=== PATIENT | female | born 1970 | race Caucasian/White ===

== ENCOUNTER 2021-09-27 09:19 | Outpatient (CLI) | payer OTHER, SELFPAY ==
[2021-09-27 11:56] LABS: Albumin* 4.3 g/dL (3.3-5.0); Chloride* 102 mmol/L (96-114)
[2021-09-27 11:57] LABS: Potassium* 4.2 mmol/L (3.6-5.1); Sodium* 137 mmol/L (135-149)
[2021-09-27 11:59] LABS: Alkaline Phosphatase* 65 U/L (40-150); Aspartate Amino Transferase* 23 U/L (12-35); Bilirubin Total* 0.8 mg/dL (0.1-1.5); Blood Urea Nitrogen* 14 mg/dL (7-30); Carbon Dioxide* 30 mmol/L (20-32); Cholesterol* 229 mg/dL (90-199); Creatinine* 0.8 mg/dL (0.5-1.5); Estimated Glomerular Filt Rate 89 ml/min; Total Protein* 6.9 g/dL (6.0-8.3)
[2021-09-27 12:00] LABS: Alanine Aminotransferase* 19 U/L (4-35); Glucose* 99 mg/dL (60-115); HDL Cholesterol* 73 mg/dL (>=50); LDL Cholesterol Calculated 129 mg/dL (<100); Triglycerides* 135 mg/dL (40-149)
[2021-09-27 12:51] LABS: Vitamin B12* 227 pg/mL (243-894)
[2021-09-27 13:40] LABS: Free T4 Free Thyroxine* 0.83 ng/dL (0.70-1.85)
== END 2021-09-27 09:20 | disposition home or self-care (01) ==
PROVIDERS: PCP Family Medicine; Visit Provider Family Medicine
DX: Z00.00 Encounter for general adult medical examination without abnormal findings (principal); R53.83 Other fatigue; F32.A Depression, unspecified; Z13.6 Encounter for screening for cardiovascular disorders; F41.9 Anxiety disorder, unspecified
CPT/HCPCS: 80053; 80061; 82607; 84439; 84443

== ENCOUNTER 2021-11-28 11:41 | Outpatient (CLI) | payer OTHER, SELFPAY ==
[2021-11-28 14:07] LABS: Vitamin B12* 403 pg/mL (243-894)
== END 2021-11-28 11:42 | disposition home or self-care (01) ==
PROVIDERS: PCP Family Medicine; Visit Provider Family Medicine
DX: Z01.419 Encounter for gynecological examination (general) (routine) without abnormal findings (principal); E53.8 Deficiency of other specified B group vitamins; E03.9 Hypothyroidism, unspecified; E78.5 Hyperlipidemia, unspecified; R53.83 Other fatigue; F32.A Depression, unspecified; F41.9 Anxiety disorder, unspecified
CPT/HCPCS: 82607; 84443

== ENCOUNTER 2022-02-23 15:49 | Outpatient (CLI) | payer OTHER, SELFPAY ==
[2022-02-23 10:05] LABS: Vitamin B12* 422 pg/mL (243-894)
== END 2022-02-23 15:50 | disposition home or self-care (01) ==
PROVIDERS: PCP Family Medicine; Visit Provider Family Medicine
DX: E53.8 Deficiency of other specified B group vitamins (principal); E03.9 Hypothyroidism, unspecified
CPT/HCPCS: 82607; 84443

== ENCOUNTER 2022-04-05 10:08 | Outpatient (CLI) | payer OTHER, SELFPAY ==
--- NOTE | 2022-04-05 10:15 | CRLHL7_ITS ---
For Patients: As a result of the Century Cures Act, medical imaging exams and procedure reports are released immediately into your electronic medical record. You may view this report before your referring provider. If you have questions, please contact your health care provider. BILATERAL SCREENING MAMMOGRAM WITH COMPUTER-AIDED DETECTION AND TOMOSYNTHESIS TECHNIQUE: CC and MLO views were obtained. These mammographic images have been obtained using full-field digital technique. These mammographic images were interpreted with the benefit of computer-aided detection. Breast Tomosynthesis was used in this interpretation. COMPARISON FILM: No priors available. FINDINGS: The breasts are heterogeneously dense, which may obscure small masses IMPRESSION: There is no radiographic evidence for malignancy. ASSESSMENT: BI-RADS Category 1: Negative RECOMMENDATION: Routine screening mammogram in 1 year. A lay language report of this examination will be provided to the patient. Jean Paul Castillo M.D. Diagnostic Radiologist [email or web address] JONNATHAN/Dictated by: Jean Paul Castillo MD @ 04/17/2022 11:51:00 AM (Electronically Signed)
== END 2022-04-05 10:09 | disposition home or self-care (01) ==
LOC: MAMMO 10:11
PROVIDERS: PCP Family Medicine; Visit Provider Family Medicine
DX: Z12.31 Encounter for screening mammogram for malignant neoplasm of breast (principal); R92.2 Inconclusive mammogram
CPT/HCPCS: 77063; 77067

== ENCOUNTER 2022-11-28 09:50 | Outpatient (CLI) | payer OTHER, SELFPAY | END 2022-11-28 09:51 | disposition home or self-care (01) | LOC: NFLDREF 11-30 09:01 | PROVIDERS: PCP Family Medicine; Referring Provider Family Medicine; Visit Provider Family Medicine | DX: E03.9 Hypothyroidism, unspecified (principal); E53.8 Deficiency of other specified B group vitamins; R53.83 Other fatigue; E78.5 Hyperlipidemia, unspecified | CPT/HCPCS: 80053; 80061; 82607; 84439; 84443 ==

== ENCOUNTER 2022-12-05 10:52 | Outpatient (CLI) | payer OTHER, SELFPAY | END 2022-12-05 10:53 | disposition home or self-care (01) | LOC: NFLDREF 10:53 | PROVIDERS: PCP Family Medicine; Visit Provider Family Medicine | DX: Z00.00 Encounter for general adult medical examination without abnormal findings (principal); R35.0 Frequency of micturition | CPT/HCPCS: 87086 ==

== ENCOUNTER 2023-03-05 09:25 | Outpatient (CLI) | payer OTHER, SELFPAY | END 2023-03-05 09:26 | disposition home or self-care (01) | LOC: NFLDREF 03-07 07:48 | PROVIDERS: PCP Family Medicine; Referring Provider Family Medicine; Visit Provider Family Medicine | DX: E03.9 Hypothyroidism, unspecified (principal) | CPT/HCPCS: 84439; 84443 ==

== ENCOUNTER 2023-05-10 10:13 | Outpatient (CLI) | payer OTHER, SELFPAY ==
--- NOTE | 2023-05-10 10:15 | US_ITS ---
Patient: NESSA AHMADI Facility:?[facility] [place] Patient ID:?[id number] Site Patient ID:?[id number]. Site :?[id number] Study:?US-Extremity Left LEV-05/10/2023 10:46:24 AM Ordering Physician:KRYSTAL BERGMAN Final Report: INDICATION: OTHER SPECIFIED SOFT TISSUE DISORDERS COMPARISON: None. TECHNIQUE: A compression venous ultrasound exam was performed of the right lower extremity using juarez-scale imaging, color Doppler and spectral Doppler analysis. FINDINGS: Sonographic imaging of the right lower extremity demonstrates normal compressibility and color Doppler venous blood flow within the common femoral vein, deep femoral vein, and the proximal greater saphenous vein. Within the thigh, the femoral vein is patent and compressible. At a lower level, the popliteal and posterior tibial veins also show normal compressibility and color Doppler venous blood flow. Limited imaging of the contralateral groin demonstrates a normal spectral waveform and color Doppler venous blood flow within the left common femoral vein. IMPRESSION: Normal venous ultrasound exam. No evidence of deep vein thrombosis within the right lower extremity. Dictated by Jean Paul Castillo MD @ 05/10/2023 11:10:36 AM Signed by:?Jean Paul Castillo MD @05/10/2023 11:10:36 AM (Electronic Signature)
== END 2023-05-10 10:14 | disposition home or self-care (01) ==
LOC: US 10:17
PROVIDERS: PCP Family Medicine; Visit Provider Family Medicine
DX: M79.89 Other specified soft tissue disorders (principal)
CPT/HCPCS: 93971

== ENCOUNTER 2023-06-11 10:05 | Outpatient (CLI) | payer OTHER, SELFPAY | END 2023-06-11 10:06 | disposition home or self-care (01) | LOC: NFLDREF 06-12 07:19 | PROVIDERS: PCP Family Medicine; Referring Provider Family Medicine; Visit Provider Family Medicine | DX: E03.9 Hypothyroidism, unspecified (principal) | CPT/HCPCS: 84443 ==

== ENCOUNTER 2023-07-18 13:24 | Outpatient (CLI) | payer OTHER, SELFPAY ==
--- OUTSIDE RECORDS SUMMARY | 2023-07-18 13:27 | XMS_ITS | Clinical Summary ---
Author Name Unknown [facility] Address [address] [place] [address] Care Team Providers Care Desilverizer Name Role Phone Yanelis Millan MD Primary Care Provider + [phone] Source Comments You are receiving this document as you are listed as the primary care provider,follow-up provider, or the patient has been referred to you for consultation.This is in compliance with the Medicare and[facility] EHR Incentive Program,which states Providers who transition their patient to another setting of careor provider of care or refers their patient to another provider of care shouldprovide summary care record for each transition of care or referral. [email or web address] Allergies Active Allergy Reactions Criticality Noted Date Comments Bee Venom Rash 03/30/2013 Doxycycline Nausea And Vomiting 02/01/2016 Patient reported. Latex Rash 02/15/2016 Other 03/23/2002 latex Penicillins Rash 03/22/2005 Medications Medication Sig Dispensed Refills Start Date End Date Status busPIRone (BUSPAR) 5 MG tabletIndications:Ramona gilmore ([facility]) Take 1 Tablet by mouth two times a day. 180 Tablet 3 09/01/2020 Active nystatin (MYCOSTATIN) 384522 UNIT/GM powderIndications:Cu taneous candidiasis Apply twice a day to affected area for 1-2 weeks 30 g 1 11/18/2020 Active ibuprofen (MOTRIN) 200 MG tablet Take 200-400 mg by mouth every 4 hours as needed for Pain. Active citalopram (CELEXA) 20 MG tabletIndications:Ramona gilmore ([facility]) TAKE 1 TABLET BY MOUTH DAILY 90 Tablet 2 06/05/2021 Active levothyroxine (SYNTHROID) 50 MCG tablet TAKE 1 TABLET BY MOUTH DAILY 90 Tablet 06/26/2021 Active Active Problems Problem Noted Date Diagnosed Date Lung nodules 03/13/2016 Overview: Lung nodules up to 5 mm, CT due 03/28 Anxiety 06/16/2015 Overview: Wellbutrin- anxiety Eustachian tube dysfunction 06/16/2015 Vertigo 05/17/2015 Obstructive sleep apnea 05/06/2014 Overview: Epic Eczema 08/26/2006 Asthma, mild intermittent 08/26/2006 Resolved Problems Problem Noted Date Diagnosed Date Resolved Date Cervical cancer screening 04/02/2017 Overview: 2006 NILM 2013 NILM 2017 ASCUS ,neg HPV 46 y.o. 2020 NILM, HPV negative 49 y.o. Plan: Co-test 11/2023 Immunizations Name Administration Dates Next Due Flu Vac (3+ yrs) 03/22/2005 Fluzone Qiv Multidose Vial 0 .25 (6-35 Mos) 03/30/2013 Influenza IIV4 (Quadrivalent ) 0.5mL (23590) 12/16/2019,03/02/2019,03/29/2017,2015,01/18/2015,04/09/2014,03/30/2013 Moderna Monovalent 12+ 09/29/2020,09/01/2020 Moderna Monovalent Booster 12+ 07/04/2021 PPSV23 (Pneumovax) 01/06/2016 Td, Preservative Free 04/27/2005 Tdap 05/17/2015,04/27/2005 Family History Medical History Relation Name Comments Bipolar Disorder Father and depress ion Hyperlipidemia Father Hypertension Father Cancer, Breast Mother Cancer, Uterine Mother and Paternal Grandmother Diabetes Mother Glaucoma Mother Hyperlipidemia Mother Hypertension Mother Macular Degeneration Mother Seizure Disorder Daughter 2 Diabetes Maternal Grandmother Heart Attack Maternal Grandmother Cancer, Pancreatic Paternal Grandfather Cancer, Uterine Paternal Grandmother Heart Disease Paternal Grandmother Pacema ker Other Son 2 Lazy eye Cancer, Ovary Negative Family History Relation Name Status Comments Father Alive Mother Alive Daughter 1 Alive Daughter 2 Maternal Grandfather Maternal Grandmother Other Alive Paternal Grandfather Paternal Grandmother Sister 1 Alive Sister 2 Alive Son 1 Alive Son 2 Social History Tobacco Use Types Packs/Day Years Used Date Smoking Tobacco: Never Smokeless Tobacco: Never Alcohol Use Standard Drinks/Week Comments No 0 (1 standard drink = 0.6 oz pur e alcohol) PHQ-2 Answer Date Recorded PHQ-2 Score 4 01/27/2021 Sex and Gender Information Value Date Recorded Sex Assigned at Not on file Gender Identity Not on file Sexual Orientation Not on file Last Filed Vital Signs Vital Sign Reading Time Taken Comments Blood Pressure 129/81 01/27/2021 12:00 PM HEEL ROOM SUPERVISOR Pulse 58 01/27/2021 12:00 PM HEEL ROOM SUPERVISOR Temperature 37.5 ??C (99.5 ??F) 01/19/2021 7:11 PM CS T Respiratory Rate 20 03/02/2019 2:24 PM HEEL ROOM SUPERVISOR Oxygen Saturation 98% 01/19/2021 7:11 PM HEEL ROOM SUPERVISOR Inhaled Oxygen Concentration - - Weight 104.3 kg (230 lb) 01/27/2021 12:00 PM HEEL ROOM SUPERVISOR Height 153.7 cm (5' 0.5) 11/18/2020 2:06 PM CDT Body Mass Index 44.18 11/18/2020 2:06 PM CDT Plan of Treatment Health Maintenance Due Date Last Done Comments Colon Cancer Screening Plan Due 1970 Hep C Screening (Preventive Services) 1970 HepB (1) 1988 Pneumococcal (2 - PCV) 01/05/2017 01/06/2016 Zoster/Shingles (1 of 2) 12/16/2019 Cholesterol 2020 12/16/2019, 03/11, 05/17/2015, Additional history exists Adult Preventive Visit 11/18/2021 , 12/16/2019, 03/29/2017, Additional history exists Mammogram 11/18/2021 11/18/2020, 09/2018, 02/07/2017, Additional history exists COVID-19 Vaccine ( season) 2022 07/04/2021, 09/29/2020, 09/01/2020 Influenza (Season Ended) 2023 020, 03/02/2019, 03/29/2017, Additional history exists Cervical Cancer Screening 11/19/20232020, 03/29/2017, 04/01/2013, Additional history exists DTaP/Tdap/Td (4 - Tdap) 05/16/2025 05/17/19 16, 04/27/2005, 04/27/2005 HIV Screening (Preventive Services) Completed 01/06/2016 HepA Aged Out No longer eligi ble based on patient's age to complete this topic Hib Aged Out No longer eligi ble based on patient's age to complete this topic IPV (Polio) Aged Out No longer eligi ble based on patient's age to complete this topic MCV4 Aged Out No longer eligi ble based on patient's age to complete this topic Procedures Procedure Name Priority Date/Time Associated Diagnosis Comments PAP TEST Routine 11/18/2020 3:40 PM CDT Routine health maintenance Screening for malignant neoplasm of cervix MM MAMMOGRAM SCREENING BILAT W 3D ZBIGNIEW W CAD Routine 11/18/2020 11:22 AM CDT Encounter for screening for malignant neoplasm of breast, unspecified screening modality LIPID PANEL & DIRECT LDL (IF NEEDED) Routine 12/16/2019 5:00 PM CDT Lipid screening HIV 1/2 AG/AB 4TH GEN Routine 01/06/2016 12:17 PM CDT Routine health maintenance Screening for human immunodeficiency virus without presence of risk factors from Last 3 Months or Most Recently Relevant to Health Maintenance Results * PAP Test (11/18/2020 3:40 PM CDT) Case Report Pap ? Case: [id number] ? Authorizing Provider: ??Chidi Cade Chi, MD ? Collected: ? 11/18/2020 1540 ? Ordering Location: ? [facility] ? Received: ?11/18/2020 1608 ? Obstetrics and Gynecology ? First Screen: ?Nathalia Santos, CT ? (ASCP) ? Specimen: ?Pap Test, Routine, Cervix/Endocervix ? 11/28/2020 11:12 AM [facility] Pap Specimen Adequacy Satisfactory for evaluation, endocervical/ni sformation zone component absent. 11/28/2020 11:12 AM [facility] Pap Interpretation Negative for intraepithelial lesion or malignancy (NILM). 11/28/2020 11:12 AM [facility] Pap Other Findings Atrophy. 11/28/2020 11:12 AM [facility] Pap Disclaimer The Pap test is a screening test designed to aid in the detection of cervical cancer and its precursor lesions. It is not a diagnostic procedure and should not be used as the sole means of detecting cervical cancer. Both false-positive and false-negative results may occur. 11/28/2020 11:12 AM [facility] Gross Description The specimen is received in SurePath fixative and properly labeled. 1 Pap-stained SurePath slide is prepared. 11/28/2020 11:12 AM [facility] Embedded Images 11:12 AM [facility] Other Specimen Type ENTIRE ENDOCERVIX / Unknown 11/18/2020 3:40 PM CDT 11/18/2020 4:08 PM CDT Comment:LMP: Patient's last menstrual period was 11/11/2020 (exact date). Chidi Cade MD LAB PATHOLOGY Performing Organization Address City/State/[facility] Co de Phone Number [address] [phone] * MM Mammogram Screening Bilat W 3D Zbigniew W CAD (11/18/2020 11:22 AM CDT) Anatomical Region Laterality Modality Breast Bilateral Mammography Impressions 11/21/2020 9:09 AM CDT : ACR BI-RADS Category 1: Negative RECOMMENDATION: Follow Up Imaging in 12 months - Bilateral The results and recommendations of this examination will be communicated to the patient. Narrative 11/21/2020 9:09 AM CDT MM MAMMOGRAM SCREENING BILAT W 3D ZBIGNIEW W CAD performed on 11/18/20 Compared to: 05/15/2018 MM Mammogram Screening Bilat W 3D Zbigniew W CAD, 02/07/2017 MM Mammogram Screening Bilat W Zbigniew W CAD, and 01/06/2016 MM Mammogram Screening Bilat W CAD ?? FINDINGS: Bilateral screening mammogram was performed with the assistance of Computer-Aided Detection and breast tomosynthesis. The breasts are heterogeneously dense, which may obscure small masses. There is no radiographic evidence of malignancy. ?? Yanelis Millan MD [facility] * (ABNORMAL) Lipid Panel and Direct LDL(If Needed) (12/16/2019 5:00 PM CDT) Cholesterol 216(H) 0 - 199 mg/dL 12/16/2019 10:01 PM CDT [facility] Triglyceride 118 <=149 mg/dL 12/16/2019 10:01 PM CDT [facility] HDL Cholesterol 59 >=40 mg/dL 12/16/2019 10:01 PM CDT [facility] LDL, Calculated 133(H) <130 mg/dL 12/16/2019 10:01 PM CDT [facility] Non HDL Chol, Calculated 157 mg/dL 12/16/2019 10:01 PM CDT [facility] Cholesterol/HDL Ratio 3.7 12/16/2019 10:01 PM CDT [facility] Hours Fasting 12 12/16/2019 10:01 PM CDT [facility] Blood Venipuncture / Unknown 12/16/2019 5:00 PM CDT 12/16/2019 5:00 PM CDT Yanelis Millan MD LAB_1 [facility] [address] [place] [address], [facility] [phone] [facility] [address] [place] [phone], [facility] [phone] * HIV 1/2 Ag/Ab 4th Generation (01/06/2016 12:17 PM CDT) HIV 1/2 AG/AB 4thGEN Negative (Non Reactive) NEGNR [facility] Comment:HIV-1 p24 Ag and HIV -1/HIV-2 Ab not detected. 01/06/2016 12:1 7 PM CDT 01/06/2016 12:[address] [facility] - 01/06/2016 3:21 PM CDT Performed at [facility], [address] ??[id number] Chidi Cade MD LAB_1 [facility] [phone] from Last 3 Months or Most Recently Relevant to Health Maintenance Care Teams Desilverizer Relationship Specialty [place] [address] [place] [id number] PCP - General Family Practice 03/30/13
--- OUTSIDE RECORDS SUMMARY | 2023-07-18 13:27 | XMS_ITS | Referral Summary ---
Author Name Unknown Organization [facility] Address [address] [place] [address] Care Team Providers Care Strand Galvanizer Name Role Phone Elsewhere, Pcp Primary Care Provider Unavailabl e Source Comments Patient records contain information from all sites at [facility]. For routine questions regarding patient records, call [phone] during business hours, M-F 8:00 AM - 5:00 PM Central Time. Record requests for emergency care only can be directed to [phone] at any time.[facility] Encounters Date Type Department Care Team Description 07/11/2023 [facility] [address] [place] [address] Joceline Bal M.D. Rash Leg (Primary Dx) from Last 3 Months Allergies Active Allergy Reactions Criticality Noted Date Comments Doxycycline Nausea And Vomiting 05/01/2007 Patient reported. Patient reported. Latex Rash 09/15/2006 Penicillins Rash 03/22/2005 Venom-Honey Bee Rash 03/30/2013 Medications Medication Sig Dispensed Refills Start Date End Date Status busPIRone (BUSPAR) 10 mg tablet Take 10 mg by mouth 2 (two) times a day. 09/27/2021 Active citalopram (CeleXA) 20 mg tablet Take 20 mg by mouth daily. 09/27/2021 Active vitamin B-12 1,000 mcg tablet Take 1,000 mcg by mouth daily. 09/29/2021 Active ibuprofen (ADVIL,MOTRIN) 200 mg tablet Take 200-400 mg by mouth every 4 (four) hours as needed. Active levothyroxine (SYNTHROID, LEVOTHROID) 88 mcg tablet Take 88 mcg by mouth daily. 09/30/2021 Active prednisoLONE acetate (PRED FORTE) 1 % ophthalmic suspension Administer 1 drop into affected eye(s). 07/15/2020 Active Active Problems No known active problems Social History Tobacco Use Types Packs/Day Years Used Date Smoking Tobacco: Never Assessed Nutrition Answer Date Recorded Nutrition: EVOO Fat Source Unknown 10/09 Nutrition: Servings of Fruits/Vegetables per Day Not on file 10/09/2021 Dental Answer Date Recorded Dental: Regular Dentist Unknown 10/10/19 Sex and Gender Information Value Date Recorded Sex Assigned at Not on file Gender Identity Not on file Sexual Orientation Not on file Last Filed Vital Signs Vital Sign Reading Time Taken Comments Blood Pressure - - Pulse 60 10/26/2021 8:59 AM CDT Temperature 37 ??C (98.6 ??F) 10/26/2021 8:59 AM CDT Respiratory Rate - - Oxygen Saturation 98% 10/26/2021 8:59 AM CDT Inhaled Oxygen Concentration - - Weight - - Height - - Body Mass Index - - Plan of Treatment Not on file Procedures Procedure Name Priority Date/Time Associated Diagnosis Comments BI BREAST SCREENING BILATERAL WITH TOMOSYNTHESIS RAD - Routine (most inpatients and all outpatients) 11/18/2020 11:22 AM CDT from Last 3 Months or Most Recently Relevant to Health Maintenance Care Teams Strand Galvanizer Relationship Specialty Start Date End Date Elsewhere, Pcp PCP - General Internal Medicine 10/09/21
--- OUTSIDE RECORDS SUMMARY | 2023-07-18 13:27 | XMS_ITS | Encounter Summary ---
Author Name Unknown Organization [facility] Address [address] [place] [address] Care Team Providers Care Inspector Exhaust Emissions Name Role Phone Yanelis Millan MD Primary Care Provider [phone] Encounter Details Date Type Department Care Team (Late st Contact Info) Description 05/18/2014 Correspondence None Inactive, Provider DME INSTRUCTION DELIVERY PAP THERAPY AND SUPPLIES Social History Tobacco Use Types Packs/Day Years Used Date Smoking Tobacco: Never Smokeless Tobacco: Never Alcohol Use Standard Drinks/Week Comments No 0 (1 standard drink = 0.6 oz pur e alcohol) Sex and Gender Information Value Date Recorded Sex Assigned at Not on file Gender Identity Not on file Sexual Orientation Not on file documented as of this encounter Plan of Treatment Not on file documented as of this encounter Visit Diagnoses Not on filedocumented in this encounter Care Teams Inspector Exhaust Emissions Relationship Specialty [place] [address] [place] [address] PCP - General Family Practice 03/30/13 documented as of this encounter
--- OUTSIDE RECORDS SUMMARY | 2023-07-18 13:27 | XMS_ITS ---
Author Name Unknown Organization [facility] Address [address] [place] [address] Care Team Providers Care Cable Supervisor Name Role Phone Unavailable Unavailable Unavailable Surgery Details Not on file Complications Check Surgery Details section. Procedure Estimated Blood Loss Check Surgery Details section. Procedure Findings Check Surgery Details section. Procedure Specimens Taken Check Surgery Details section.
--- OUTSIDE RECORDS SUMMARY | 2023-07-18 13:27 | XMS_ITS | Clinical Summary ---
Author Name Unknown Organization [facility] Address [address] [place] [address] Care Team Providers Care Audit Lead Name Role Phone Elsewhere, Pcp Primary Care Provider Unavailabl e Source Comments Patient records contain information from all sites at [facility]. For routine questions regarding patient records, call [phone] during business hours, M-F 8:00 AM - 5:00 PM Central Time. Record requests for emergency care only can be directed to [phone] at any time.[facility] Allergies Active Allergy Reactions Criticality Noted Date [...] Active Active Problems No known active problems Encounters Date Type Department Care Team Description 07/11/2023 [facility] [address] [place] [address] Joceline Bal M.D. Rash Leg (Primary Dx) from Last 3 Months Social History Tobacco Use Types Packs/Day Years [...] Mass Index - - Plan of Treatment Health Maintenance Due Date Last Done Comments CT Colonography 1969 Cervical Cancer Screening 1969 Cologuard 1969 Colonoscopy 1969 Colorectal Cancer Screening 1969 FIT 1969 Fasting Glucose for Diabetes Screening 1970 HIV Screening 1969 Hepatitis C Screening 1970 Lipid (Cholesterol) Screening 1969 Thyroid Stimulating Hormone (TSH) test for thyroid function 1969 Hepatitis B Vaccines (1 of 3 - 19+ 3-dose series) 1988 Mammogram 11/18/2021 11/18/2020, 03/0 09/2018, 02/07/2017, Additional history exists COVID-19 Vaccine ( - 2022-24 season) 2022 07/04/2021, 09/29/2020, 09/01/2020 Depression Screening (Annual PHQ-2) 03/11/2023 DTaP,Tdap,and Td Vaccines (3 - Td or Tdap) 05/16/2025 05/17/2015, 04/27/2005, 04/27/2005 Pneumococcal vaccine (0-64 years) Aged Out 01/06/2016 No longer eligible based on patient's age to complete this topic Zoster Vaccines Completed 02/27/2022, 11/28/2021 Influenza Vaccine Completed 12/05/2022, , 12/16/2019, Additional history exists Procedures Procedure Name Priority Date/Time Associated Diagnosis Comments BI BREAST SCREENING BILATERAL WITH TOMOSYNTHESIS RAD - Routine (most inpatients and all outpatients) 11/18/2020 11:22 AM CDT from Last 3 Months or Most Recently Relevant to Health Maintenance Care Teams Audit Lead Relationship Specialty Start Date End Date Elsewhere, Pcp PCP - General Internal Medicine 10/09/21
--- OUTSIDE RECORDS SUMMARY | 2023-07-18 13:27 | XMS_ITS | Encounter Summary ---
Author Name Unknown Organization [facility] Address [address] [place] [address] Care Team Providers Care Medicare Nurse Name Role Phone Yanelis Millan MD Primary Care Provider [phone] Encounter Details Date Type Department Care Team (Late st Contact Info) Description 11/10/2015 Correspondence External to DID NOT CMPLETE Social History Tobacco Use Types Packs/Day Years [...] on filedocumented in this encounter Care Teams Medicare Nurse Relationship Specialty [place] [address] [place] [address] PCP - General Family Practice 03/30/13 documented as of this encounter
--- OUTSIDE RECORDS SUMMARY | 2023-07-18 13:27 | XMS_ITS | Encounter Summary ---
Author Name Unknown Organization [facility] Address [address] [place] [address] Care Team Providers Care Clinical Technician Name Role Phone Yanelis Millan MD Primary Care Provider [phone] Encounter Details Date Type Department Care Team (Late st Contact Info) Description 05/18/2014 Correspondence None Inactive, Provider INSTRUCTION CHECKLIST Social History Tobacco Use Types Packs/Day Years [...] on filedocumented in this encounter Care Teams Clinical Technician Relationship Specialty [place] [address] [place] [address] PCP - General Family Practice 03/30/13 documented as of this encounter
--- OUTSIDE RECORDS SUMMARY | 2023-07-18 13:27 | XMS_ITS | Encounter Summary ---
Author Name Unknown Organization [facility] Address [address] [place] [address] Care Team Providers Care Brazer Production Line Name Role Phone Yanelis Millna MD Primary Care Provider Encounter Details Date Type Department Care Team (Latest Contact Info) Description 03/08/2016 Consent for Procedure/Treatme nt [facility] [address] [place] [address] METHACHOLINE CHALLENGE TEST Social History Tobacco Use Types Packs/Day Years [...] on filedocumented in this encounter Care Teams Brazer Production Line Relationship Specialty [place] [address] [place] [address] PCP - General Family Practice 03/30/13 documented as of this encounter
--- OUTSIDE RECORDS SUMMARY | 2023-07-18 13:27 | XMS_ITS | Encounter Summary ---
Author Name Unknown Organization [facility] Address [address] [place] [address] Care Team Providers Care Ecommerce Manager Name Role Phone Yanelis Millan MD Primary Care Provider Encounter Details Date Type Department Care Team (Late st Contact Info) Description 06/03/2014 Correspondence None Inactive, Provider PAP EQUIPMENT PICK-UP TICKET Social History Tobacco Use Types Packs/Day Years [...] on filedocumented in this encounter Care Teams Ecommerce Manager Relationship Specialty [place] [address] [place] [address] PCP - General Family Practice 03/30/13 documented as of this encounter
--- OUTSIDE RECORDS SUMMARY | 2023-07-18 13:27 | XMS_ITS | Encounter Summary ---
Author Name Unknown Organization [facility] Address [address] [place] [address] Care Team Providers Care Javascript Front End Developer Name Role Phone Yanelis Millan MD Primary Care Provider [phone] Encounter Details Date Type Department Care Team (Late st Contact Info) Description 11/29/2017 Correspondence [facility] [address] [place] [id number] [place] [address] [place] [id number] CONTINUTIY OF CARE DOCUMENT Social History Tobacco Use Types Packs/Day Years [...] on filedocumented in this encounter Care Teams Javascript Front End Developer Relationship Specialty [place] [address] [place] [id number] PCP - General Family Practice 03/30/13 documented as of this encounter
--- OUTSIDE RECORDS SUMMARY | 2023-07-18 13:27 | XMS_ITS | Encounter Summary ---
Author Name Unknown Organization [facility] Address [address] [place] [address] Care Team Providers Care Manager Adult Name Role Phone Elsewhere, Pcp Primary Care Provider Unavailabl e Reason for Referral * Outpatient (Routine) - Authorized Specialty Diagnoses / Procedures Referred By Marissa workman Referred To Contact Dermatology Diagnoses Rash Leg Joceline Bal M.D. [address] [place] [address] [facility] Referral ID Status Reason Start Date Expiration Date V isits Requested Visits Authorized [id number] Authorized 07/11/2023 01/09/2025 1 1 Encounter Details Date Type Department Care Team (Late st Contact Info) Description 07/11/2023 [facility] [address] [place] [address] Joceline Bal M.D. [address] [place] [address] Brittney Leg (Primary Dx) Social History Tobacco Use Types Packs/Day Years [...] as of this encounter Plan of Treatment Scheduled Referrals Name Type Priority Associated Diagnoses Order Schedule Dermatology Referral Outpatient Referral Routine Rash Leg Expected: 07/11/2023 (Approximate), Expires: 10/10/2024 documented as of this encounter Visit Diagnoses Diagnosis Rash Leg- Primary documented in this encounter Care Teams Manager Adult Relationship Specialty Start Date End Date Elsewhere, Pcp PCP - General Internal Medicine 10/09/21 documented as of this encounter
--- OUTSIDE RECORDS SUMMARY | 2023-07-18 13:27 | XMS_ITS | Encounter Summary ---
Author Name Unknown Organization [facility] Address [address] [place] [address] Care Team Providers Care Plug Drill Operator Name Role Phone Yanelis Millan MD Primary Care Provider Encounter Details Date Type Department Care Team (Late st Contact Info) Description 05/18/2014 Correspondence None Inactive, Provider PAP EQUIPMENT PICK-UP [...] on filedocumented in this encounter Care Teams Plug Drill Operator Relationship Specialty [place] [address] [place] [address] PCP - General Family Practice 03/30/13 documented as of this encounter
--- NOTE | 2023-07-18 13:45 | MR_ITS ---
[address] [address] Phone:?[phone] Fax:?[phone] Referring Physician Information: Jeremy Chester M.D. [address] [facility] [address] Phone:?[phone] Fax:?[phone] Patient:Alistair Johnson D.O.B:?1970 Sex:?Female Phone:?[phone] [facility] MRN:?[id number] Exam Date:?07/18/2023 EXAM: MRI of the LEFT KNEE, without contrast CLINICAL HISTORY: Left knee pain. Evaluate for meniscal tear. COMPARISONS: None available. TECHNICAL: MR sequences of the left knee: sagittals: PD, T2 FS coronals: PD, STIR, T2 axials: PD, T2 FS CONTRAST: None SEDATION: None FINDINGS: Bones: There is extensive edema-like signal throughout the imaged portions of the femoral and tibial diaphyseal bone marrow. 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 Retinacula: The medial and lateral retinacula are intact. Fat pads: The infrapatellar, quadriceps, and prefemoral fat pads are unremarkable. Knee joint: Effusion: Moderate left knee joint effusion. Popliteal cyst: None. Intra-articular bodies: None. Posteromedial corner: The semimembranosus and pes anserine tendons are intact. Medial compartment: Medial meniscus: There is a 1.0 cm in length complex tear of the body of the medial meniscus. Cartilage: No discrete chondral defect is seen although evaluation is suboptimal secondary to suboptimal znvuew-yp-apcen secondary to patient body habitus. Lateral compartment: Lateral meniscus: No lateral meniscal tear is seen although evaluation is suboptimal secondary to suboptimal fwomye-ew-umlzn secondary to patient body habitus. Cartilage: No chondral defect is seen. Ligaments: Anterior cruciate ligament: Intact. Posterior cruciate ligament: Intact. Medial collateral ligament: Intact. Posterior oblique ligament: Intact. Fibular collateral ligament: Intact. Posterolateral corner: The distal biceps femoris tendon, iliotibial band, popliteus tendon, popliteus muscle, popliteofibular ligament, and arcuate ligament are intact. Extensor mechanism: Patellar tendon: Intact. Quadriceps tendon: Intact. IMPRESSION: 1. 1.0 cm in length complex tear of the body of the medial meniscus. 2. 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 3. Extensive edema-like signal throughout the imaged portions of the femoral and tibial diaphyseal bone marrow is most consistent with hematopoietic marrow (which can be seen in patients who smoke, who are obese, or who are anemic) but is not completely specific. 4. Moderate left knee joint effusion. 5. No lateral meniscal tear is seen although evaluation is suboptimal secondary to suboptimal ihjpkw-ck-ssxlc secondary to patient body habitus. 6. No ligamentous or tendinous pathology of the left knee. RCB Electronically signed on 07/18/2023 6:04:00 PM by Daniel Zarate M.D.
== END 2023-07-18 13:25 | disposition home or self-care (01) ==
LOC: MRI 13:25
PROVIDERS: PCP Family Medicine; Visit Provider Orthopaedic Surgery
DX: M25.562 Pain in left knee (principal); S83.232A Complex tear of medial meniscus, current injury, left knee, initial encounter; M22.42 Chondromalacia patellae, left knee; M25.462 Effusion, left knee
CPT/HCPCS: 73721

== ENCOUNTER 2023-08-13 08:48 | Day surgery (SDC) | payer OTHER, SELFPAY ==
[2023-08-13] VITALS (12 sets, daily range): BP systolic 97–153; BP diastolic 66–92; PULSE 57–97; RESP 14–18; TEMP 35.9–36.9; O2SAT 95–98; BMI 44.3
--- NOTE | 2023-08-13 06:33 | W.ANESCHARGE ---
Anesthesia Charges Start Date/Time Anesthesia Start Date: 08/13/23 Anesthesia Start Time: 10:10 Stop Date/Time Anesthesia Stop Date: 08/13/23 Anesthesia Stop Time: 11:12
--- OUTSIDE RECORDS SUMMARY | 2023-08-13 08:50 | XMS_ITS | Encounter Summary ---
Author Organization [facility] Address [address] [place] [address] Care Team Providers Care Real Estate Investment Analyst Name Role Phone Elsewhere, Pcp Primary Care Provider Unavailabl e Encounter Details Date Type Department Care Team (Late st Contact Info) Description 08/07/2023 Clinical Communication Primary Care on Demand at [facility] [address] [place] [address] Ned Dominguez M.D. [address] [place] [address] Social History Tobacco Use Types Packs/Day Years [...] on filedocumented in this encounter Care Teams Real Estate Investment Analyst Relationship Specialty Start Date End Date Elsewhere, Pcp PCP - General Internal Medicine 10/09/21 documented as of this encounter
--- OUTSIDE RECORDS SUMMARY | 2023-08-13 08:50 | XMS_ITS | Encounter Summary ---
Author Organization [facility] Address [address] [place] [address] Care Team Providers Care Rn Support Services Name Role Phone Yanelis Millan MD Primary [...] on filedocumented in this encounter Care Teams Rn Support Services Relationship Specialty [place] [address] [place] [address] PCP - General Family Practice 03/30/13 documented as of this encounter
--- OUTSIDE RECORDS SUMMARY | 2023-08-13 08:50 | XMS_ITS | Referral Summary ---
Author Organization [facility] Address [address] [place] [address] Care Team Providers Care 4Th Grade Math Teacher Name Role Phone Elsewhere, Pcp Primary Care Provider Unavailabl e Source Comments Patient records contain information from all sites at [facility]. For routine questions regarding patient records, call [phone] during business hours, M-F 8:00 AM - 5:00 PM Central Time. Record requests for emergency care only can be directed to [phone] at any time.[facility] Encounters Date Type Department Care Team Description 08/07/2023 Clinical Communication Primary Care on Demand at [facility] [address] [place] [address] Ned Dominguez M.D. 07/11/2023 [facility] [address] [place] [address] Joceline Bal M.D. Rash Leg (Primary Dx) [...] Recently Relevant to Health Maintenance Care Teams 4Th Grade Math Teacher Relationship Specialty Start Date End Date Elsewhere, Pcp PCP - General Internal Medicine 10/09/21
--- OUTSIDE RECORDS SUMMARY | 2023-08-13 08:50 | XMS_ITS | Encounter Summary ---
Author Organization [facility] Address [address] [place] [address] Care Team Providers Care Nipping Machine Operator Name Role Phone Yanelis Millan MD [...] on filedocumented in this encounter Care Teams Nipping Machine Operator Relationship Specialty [place] [address] [place] [address] PCP - General Family Practice 03/30/13 documented as of this encounter
--- OUTSIDE RECORDS SUMMARY | 2023-08-13 08:50 | XMS_ITS | Clinical Summary ---
Author Organization [facility] Address [address] [place] [address] Care Team Providers Care Cutter Finisher Name Role Phone Yanelis Millan MD Primary Care Provider [phone] Source Comments You are receiving this document as you are listed as the primary care provider,follow-up provider, or the patient has been referred to you for consultation.This is in compliance with the Medicare and[facility] Cent[facility] EHR Incentive Program,which states Providers who transition their patient to another setting of careor provider of care or refers their patient to another provider of care shouldprovide summary care record for each transition of care or referral. [facility] Allergies Active Allergy Reactions Criticality Noted Date Comments Bee Venom Rash 03/30/2013 Doxycycline Nausea And Vomiting 02/01/2016 Patient reported. Latex Rash 02/15/2016 Other 03/23/2002 latex Penicillins Rash 03/22/2005 Medications Medication Sig Dispensed Refills Start Date End Date Status busPIRone (BUSPAR) 5 MG tabletIndications:Ramona gilmore ([facility]) Take 1 Tablet by mouth two times a day. 180 Tablet 3 09/01/2020 Active nystatin (MYCOSTATIN) 760582 UNIT/GM powderIndications:Cu taneous candidiasis Apply twice a day to affected area for 1-2 weeks 30 g 1 11/18/2020 Active ibuprofen (MOTRIN) 200 MG tablet Take 200-400 mg by mouth every 4 hours as needed for Pain. Active citalopram (CELEXA) 20 MG tabletIndications:Ramona gilmore ([facility]) TAKE 1 TABLET BY MOUTH DAILY [...] Mos) 03/30/2013 Influenza IIV4 (Quadrivalent ) 0.5mL (67961) 12/16/2019,03/02/2019,03/29/2017,2015,01/18/2015,04/09/2014,03/30/2013 Moderna Monovalent 12+ 09/29/2020,09/01/2020 Moderna Monovalent [...] Comments Blood Pressure 129/81 01/27/2021 12:00 PM REFRIGERATOR ASSEMBLER Pulse 58 01/27/2021 12:00 PM REFRIGERATOR ASSEMBLER Temperature 37.5 ??C (99.5 ??F) 01/19/2021 7:11 PM CS T Respiratory Rate 20 03/02/2019 2:24 PM REFRIGERATOR ASSEMBLER Oxygen Saturation 98% 01/19/2021 7:11 PM REFRIGERATOR ASSEMBLER Inhaled Oxygen Concentration - - Weight 104.3 kg (230 lb) 01/27/2021 12:00 PM REFRIGERATOR ASSEMBLER Height 153.7 cm (5' 0.5) 11/18/2020 2:06 [...] PM CDT) Case Report Pap ? Case: [id number] ? Authorizing Provider: ??Ayika, Kimberlee N P, MD ? Collected: ? 11/18/2020 1540 ? Ordering Location: ? [facility] ? Received: ?11/18/2020 1608 ? Obstetrics and Gynecology ? First Screen: ?Nathalia Santos, CT ? (ASCP) ? Specimen: ?Pap Test, Routine, Cervix/Endocervix ? 11/28/2020 11:12 AM [facility] Pap Specimen Adequacy Satisfactory for evaluation, endocervical/ni sformation zone component absent. 11/28/2020 11:12 AM [facility] Pap Interpretation Negative for intraepithelial lesion or malignancy (NILM). 11/28/2020 11:12 AM [facility] Pap Other Findings Atrophy. 11/28/2020 11:12 AM [facility] Pap Disclaimer The Pap test is a screening test designed to aid in the detection of cervical cancer and its precursor lesions. It is not a diagnostic procedure and should not be used as the sole means of detecting cervical cancer. Both false-positive and false-negative results may occur. 11/28/2020 11:12 AM [facility] Gross Description The specimen is received in SurePath fixative and properly labeled. 1 Pap-stained SurePath slide is prepared. 11/28/2020 11:12 AM [facility] Embedded Images 11:12 AM [facility] Other Specimen Type ENTIRE ENDOCERVIX / Unknown 11/18/2020 3:40 PM CDT 11/18/2020 4:08 PM CDT Comment:LMP: Patient's last menstrual period was 11/11/2020 (exact date). Chidi Cade MD LAB PATHOLOGY Performing Organization Address City/State/[facility] Co de Phone Number [address] [phone] * MM Mammogram Screening Bilat W 3D [...] evidence of malignancy. ?? Yanelis Millan MD [facility] * (ABNORMAL) Lipid Panel and Direct LDL(If Needed) (12/16/2019 5:00 PM CDT) Cholesterol 216(H) 0 - 199 mg/dL 12/16/2019 10:01 PM CDT [facility] Triglyceride 118 <=149 mg/dL 12/16/2019 10:01 PM CDT [facility] HDL Cholesterol 59 >=40 mg/dL 12/16/2019 10:01 PM CDT [facility] LDL, Calculated 133(H) <130 mg/dL 12/16/2019 10:01 PM CDT [facility] Non HDL Chol, Calculated 157 mg/dL 12/16/2019 10:01 PM CDT [facility] Cholesterol/HDL Ratio 3.7 12/16/2019 10:01 PM CDT [facility] Hours Fasting 12 12/16/2019 10:01 PM CDT [email or web address] Blood Venipuncture / Unknown 12/16/2019 5:00 PM CDT 12/16/2019 5:00 PM CDT Yanelis Millan MD LAB_1 [facility] [employer] [address] [address], [facility] [phone] [facility] [address] [place] [address], [facility] [phone] * HIV 1/2 Ag/Ab 4th Generation (01/06/2016 12:17 PM CDT) HIV 1/2 AG/AB 4thGEN Negative (Non Reactive) NEGNR [facility] Comment:HIV-1 p24 Ag and HIV -1/HIV-2 Ab not detected. 01/06/2016 12:1 7 PM CDT 01/06/2016 12:19 PM CDT Narrative [facility] - 01/06/2016 3:21 PM CDT [facility], [address] [place] [address] ??[id number] Chidi Cade MD LAB_1 [facility] [phone] from Last 3 Months or Most Recently Relevant to Health Maintenance Care Teams Cutter Finisher Relationship Specialty [place] [address] [place] [address] PCP - General Family Practice 03/30/13
--- OUTSIDE RECORDS SUMMARY | 2023-08-13 08:50 | XMS_ITS | Encounter Summary ---
Author Organization [facility] Address [address] [place] [address] Care Team Providers Care Grain Weigher Name Role Phone Yanelis Millan MD Primary Care Provider Encounter Details Date Type Department Care Team (Late st Contact Info) Description 11/29/2017 Correspondence [facility] [address] [id number] [place] [address] [place] [address] CONTINUTIY OF CARE DOCUMENT Social History Tobacco [...] on filedocumented in this encounter Care Teams Grain Weigher Relationship Specialty Start [place] [address] [place] [place] [id number] PCP - General Family Practice 03/30/13 documented as of this encounter
--- OUTSIDE RECORDS SUMMARY | 2023-08-13 08:50 | XMS_ITS | Clinical Summary ---
Author Organization [facility] Address [address] [place] [address] Care Team Providers Care Advisory Intern Name Role Phone Elsewhere, Pcp Primary Care Provider Unavailabl e Source Comments Patient records contain information from all sites at [facility]. For routine questions regarding patient records, call [phone] during business hours, M-F 8:00 AM - 5:00 PM Central Time. Record requests for emergency care only can be directed to [phone] at any time.[facility] Allergies Active Allergy Reactions Criticality Noted Date [...] Clinical Communication Primary Care on Demand at [facility] [address] [facility] [address] Ned Dominguez M.D. 07/11/2023 [facility] [address] [place] [id number] Joceline Bal M.D. Rash Leg (Primary Dx) [...] Date Last Done Comments CT Colonography 1970 Cologuard 1970 Colonoscopy 1970 Colorectal Cancer Screening 1970 FIT 1970 Fasting Glucose for Diabetes Screening 1970 HIV Screening 1970 Hepatitis C Screening 1970 Lipid (Cholesterol) Screening 1970 Thyroid Stimulating Hormone (TSH) test for thyroid function 1970 Hepatitis B Vaccines (1 of 3 - 19+ 3-dose series) 1988 Mammogram 11/18/2021 11/18/2020, 11/09, 05/15/2018, Additional history exists COVID-19 Vaccine ( season) 2022 07/04/2021, 09/29/2020, 09/01/2020 Depression Screening (Annual PHQ-2) 03/11/2023 Cervical Cancer Screening 11/19/2023 11/18/2020 DTaP,Tdap,and Td Vaccines (3 - Td or [...] Recently Relevant to Health Maintenance Care Teams Advisory Intern Relationship Specialty Start Date End Date Elsewhere, Pcp PCP - General Internal Medicine 10/09/21
--- OUTSIDE RECORDS SUMMARY | 2023-08-13 08:50 | XMS_ITS | Encounter Summary ---
Author Organization [facility] Address [address] [place] [address] Care Team Providers Care Explosives Worker Name Role Phone Elsewhere, Pcp Primary Care Provider Unavailabl e Reason for Referral * Outpatient (Routine) - Authorized Specialty Diagnoses / Procedures Referred By Marissa workman Referred To Contact Dermatology Diagnoses Rash Leg Joceline Bal M.D. [address] [place] [address] [facility] Referral ID Status Reason Start Date Expiration Date V isits Requested Visits Authorized [id number] Authorized 07/11/2023 01/09/2025 1 1 Encounter Details Date Type Department Care Team (Late st Contact Info) Description 07/11/2023 [facility] [address] [place] [address] Joceline Bal M.D. [address] [place] [address] Rash Leg (Primary Dx) Social History Tobacco Use [...] Primary documented in this encounter Care Teams Explosives Worker Relationship Specialty Start Date End Date Elsewhere, Pcp PCP - General Internal Medicine 10/09/21 documented as of this encounter
--- OUTSIDE RECORDS SUMMARY | 2023-08-13 08:50 | XMS_ITS | Encounter Summary ---
Author Organization [facility] Address [address] [place] [address] Care Team Providers Care Dish Network Installer Name Role Phone Yanelis Millan MD Primary Care Provider [phone] Encounter Details Date Type Department Care Team (Latest Contact Info) Description 03/08/2016 Consent for Procedure/Treatme nt [facility] [address] [place] [address] METHACHOLINE CHALLENGE TEST Social History Tobacco Use [...] on filedocumented in this encounter Care Teams Dish Network Installer Relationship Specialty [place] [address] [place] [address] PCP - General Family Practice 03/30/13 documented as of this encounter
--- OUTSIDE RECORDS SUMMARY | 2023-08-13 08:50 | XMS_ITS | Encounter Summary ---
Author Organization [facility] Address [address] [place] [address] Care Team Providers Care Exceptional Student Education Teacher Name Role Phone Yanelis Millan MD Primary [...] on filedocumented in this encounter Care Teams Exceptional Student Education Teacher Relationship Specialty [place] [address] [place] [address] PCP - General Family Practice 03/30/13 documented as of this encounter
--- OUTSIDE RECORDS SUMMARY | 2023-08-13 08:50 | XMS_ITS ---
Author Organization [facility] Address [address] [place] [address] Care Team Providers Care Carbon Setter Name Role Phone Unavailable Unavailable Unavailable Surgery Details Not on file Complications Check Surgery Details section. Procedure Estimated Blood Loss Check Surgery Details section. Procedure Findings Check Surgery Details section. Procedure Specimens Taken Check Surgery Details section.
--- OUTSIDE RECORDS SUMMARY | 2023-08-13 08:50 | XMS_ITS | Encounter Summary ---
Author Organization [facility] Address [address] [place] [address] Care Team Providers Care Career Advisor Name Role Phone Yanelis Millan MD Primary [...] on filedocumented in this encounter Care Teams Career Advisor Relationship Specialty [place] [address] [place] [address] PCP - General Family Practice 03/30/13 documented as of this encounter
--- OUTSIDE RECORDS SUMMARY | 2023-08-13 08:50 | XMS_ITS | Encounter Summary ---
Author Organization [facility] Address [address] [place] [address] Care Team Providers Care Rfid Engineer Name Role Phone Yanelis Millan MD Primary [...] on filedocumented in this encounter Care Teams Rfid Engineer Relationship Specialty [place] [address] [place] [address] PCP - General Family Practice 03/30/13 documented as of this encounter
[2023-08-13] MEDS: LACTATED RINGERS 1000 ML 1,000 ML 100 ML IV (08:55)
[2023-08-13] MEDS: CEFAZOLIN 2 GM INJ IVP (10:24)
--- NOTE | 2023-08-13 10:40 | W.ANESCHARGE ---
Anesthesia Charges Start Date/Time Anesthesia Start Date: 08/13/23 Anesthesia Start Time: 10:10 Stop Date/Time Anesthesia Stop Date: 08/13/23 Anesthesia Stop Time: 11:12
--- NOTE | 2023-08-13 10:59 | P.ORPRC_ITS ---
Procedure Note Date of procedure: 08/13/23 Procedure: PREOPERATIVE DIAGNOSIS: Left knee medial meniscus tear POSTOPERATIVE DIAGNOSIS: Left knee medial meniscus tear NAME OF OPERATION: Left knee arthroscopic partial medial meniscectomy SURGEON: Jeremy Chester MD PHOTO EQUIPMENT TECHNICIAN: JUAN Yancey ANESTHESIA: Spinal ESTIMATED BLOOD LOSS: 0 mL COMPLICATIONS: None SPECIMENS: None DRAINS: None PREOPERATIVE ANTIBIOTICS: Ancef 2 gram INDICATIONS: The patient is a 52-year-old with a history of left knee medial pain. MRI scan is consistent with a medial meniscus tear. Despite appropriate nonoperative management, including activity modification, antiinflammatories, bwlm-yfx-ecxfdkj pain medication, bracing, physical therapy, and injections they continue to have pain and disability. Operative intervention was offered. The risks, benefits and expected outcomes were discussed in detail. These included but were not limited to: Infection, bleeding, injury to blood vessel or nerve, venous thromboembolism. All questions were answered to their satisfaction. PROCEDURE: Spinal anesthesia was administered. The patient was placed supine on the operating room table. The left lower extremity was prepped and draped in the usual sterile fashion. The limb was exsanguinated with the Junito bandage. The pneumatic tourniquet was inflated to 300 mmHg. A standard anterolateral portal was established. The arthroscope was introduced. The working portal was established anteromedially. Diagnostic arthroscopy was performed with findings as follows: The suprapatellar pouch is normal. Articular surface on the patella is normal. Articular surface on the trochlea is normal. The medial gutter is normal. The medial compartment shows a focal area of grade 3 change on the central, weight- bearing portion of medial femoral condyle, normal articular cartilage on the medial tibial plateau. The medial meniscus has a degenerative tear at the junction of the midbody and posterior horn. There is a small radial tear from the leading edge, the does not go to the capsule. There was some undersurface horizontal cleavage tearing. The root is intact. The notch shows the ACL to be intact. The lateral compartment shows normal articular cartilage on the lateral femoral condyle and lateral tibial plateau. The lateral meniscus is normal. The lateral gutter is normal. The posterior horn of the medial meniscus was debrided to a stable base using a combination of sadia through both portals. Unstable chondral flaps on the medial femoral condyle were debrided with the shaver through both portals, taken to a stable base. Arthroscopic instruments were removed, the portal sites were Steri-Stripped closed, the knee was infiltrated with 30 mL of 0.25% Marcaine without epinephrine. A dry dressing was applied, the tourniquet was released. Sponge and needle counts were correct x 2. The patient tolerated the procedure well. There were no apparent complications. They were carefully transferred to the hospital bed and taken to the postanesthesia care unit in satisfactory condition. PLAN: The patient will be discharged to home. They may weightbear as tolerates. Range of motion will be unrestricted. They will follow up in the office next week for a wound check.
[2023-08-13] MEDS: BUPIVACAINE 0.25% 30 ML INJECTION (11:02)
--- NOTE | 2023-08-13 11:16 | SUR.OPER ---
PATIENT QUESTIONS ANSWERED SATISFACTORILY PREOPERATIVELY.? PATIENT BROUGHT TO OR #1 PER CART AFTER ADMINISTRATION OF A BLOCK.? Patient positioned supine on OR #1 bed.? The perioperative?team supported arms bilaterally on arm boards.? CONTINUOUS IRRIGATION OF THE LEFT KNEE WITH 3000cc BAGS NACL. Final approval of positioning by surgeon.?
[2023-08-13] MEDS: OxyCODONE/APAP 5-325 TABLET 1 TAB PO (12:45)
== END 2023-08-13 13:06 | disposition home or self-care (01) ==
LOC: OR 08:48
PROVIDERS: PCP Family Medicine; Visit Provider Orthopaedic Surgery
PROC: (CPT 29882; principal; 2023-08-13 10:15)
DX: M23.222 Derangement of posterior horn of medial meniscus due to old tear or injury, left knee (principal)
CPT/HCPCS: 29881; 01400; A9270; J0665; J0690; J1100; J2405; J2704; J7120

== ENCOUNTER 2023-10-07 15:45 | Outpatient (RCR) | payer OTHER, SELFPAY | END 2024-02-04 23:59 | disposition home or self-care (01) | PROVIDERS: PCP Family Medicine; Visit Provider Orthopaedic Surgery | DX: Z98.890 Other specified postprocedural states (principal); Z87.828 Personal history of other (healed) physical injury and trauma; Z51.89 Encounter for other specified aftercare; M25.562 Pain in left knee; M62.81 Muscle weakness (generalized) | CPT/HCPCS: 97110; 97161 ==

== ENCOUNTER 2023-12-02 09:30 | Outpatient (CLI) | payer OTHER, SELFPAY ==
--- OUTSIDE RECORDS SUMMARY | 2023-12-06 02:40 | XMS_ITS | Encounter Summary ---
Author Organization [employer] [facility] Address [address] [place] [address] Care Team Providers Care Line Dancer Name Role Phone Yanelis Millan MD Primary Care Provider [phone] Encounter Details Date Type Department Care Team [...] on filedocumented in this encounter Care Teams Line Dancer Relationship Specialty [place] [address] [place] [address] PCP - General Family Practice 03/30/13 documented as of this encounter
--- OUTSIDE RECORDS SUMMARY | 2023-12-06 02:40 | XMS_ITS | Encounter Summary ---
Author Organization [employer] Address [address] [place] [address] Care Team Providers Care Resistor Inspector Name Role Phone Yanelis Millan MD Primary [...] on filedocumented in this encounter Care Teams Resistor Inspector Relationship Specialty [place] [address] [place] [address] PCP - General Family Practice 03/30/13 documented as of this encounter
--- OUTSIDE RECORDS SUMMARY | 2023-12-06 02:40 | XMS_ITS | Encounter Summary ---
Author Organization [email or web address] Address [address] [place] [address] Care Team Providers Care Set Up And Charger Name Role Phone Yanelis Millan MD Primary Care Provider [phone] Encounter Details Date Type Department Care Team [...] on filedocumented in this encounter Care Teams Set Up And Charger Relationship Specialty [place] [address] [place] [address] PCP - General Family Practice 03/30/13 documented as of this encounter
--- OUTSIDE RECORDS SUMMARY | 2023-12-06 02:40 | XMS_ITS | Encounter Summary ---
Author Organization [employer] Address [address] [place] [address] Care Team Providers Care Sustainable Agriculture Faculty Name Role Phone Yanelis Millan MD Primary Care Provider Encounter Details Date Type Department Care Team (Late st Contact Info) Description 11/29/2017 Correspondence [facility] [address] [phone] [place] [address] [place] [address]493 CONTINUTIY OF CARE DOCUMENT Social History Tobacco [...] on filedocumented in this encounter Care Teams Sustainable Agriculture Faculty Relationship Specialty Start [place] [address] [address] [place] [id number] PCP - General Family Practice 03/30/13 documented as of this encounter
--- OUTSIDE RECORDS SUMMARY | 2023-12-06 02:40 | XMS_ITS | Encounter Summary ---
Author Organization [employer] Address [address] [place] [address] Care Team Providers Care Wood Strip Block Floor Installer Name Role Phone Yanelis Millan MD Primary Care Provider [phone] Encounter Details Date Type Department Care Team (Latest Contact Info) Description 03/08/2016 Consent for Procedure/Treatme nt [facility] [address] [place] [address] METHACHOLINE CHALLENGE TEST Social History Tobacco Use [...] on filedocumented in this encounter Care Teams Wood Strip Block Floor Installer Relationship Specialty Start [place] [address] [place] [address] PCP - General Family Practice 03/30/13 documented as of this encounter
--- OUTSIDE RECORDS SUMMARY | 2023-12-06 02:40 | XMS_ITS | Clinical Summary ---
Author Organization [employer] Address [address] [place] [address] Care Team Providers Care Fruit Picker Name Role Phone Yanelis Millan MD Primary Care Provider + [phone] Source Comments You are receiving this document as you are listed as the primary care provider,follow-up provider, or the patient has been referred to you for consultation.This is in compliance with the Medicare and[facility] Hospital[facility] EHR Incentive Program,which states Providers who transition their patient to another setting of careor provider of care or refers their patient to another provider of care shouldprovide summary care record for each transition of care or referral. [employer] Allergies Active Allergy Reactions Criticality Noted Date Comments Bee Venom Rash 03/30/2013 Doxycycline Nausea And Vomiting 02/01/2016 Patient reported. Latex Rash 02/15/2016 Other 03/23/2002 latex Penicillins Rash 03/22/2005 Medications Medication Sig Dispensed Refills Start Date End Date Status busPIRone (BUSPAR) 5 MG tabletIndications:Ramona gilmore ([facility]) Take 1 Tablet by mouth two times a day. 180 Tablet 3 09/01/2020 Active nystatin (MYCOSTATIN) 357811 UNIT/GM powderIndications:Cu taneous candidiasis Apply twice a day to affected area for 1-2 weeks 30 g 1 11/18/2020 Active ibuprofen (MOTRIN) 200 MG tablet Take 200-400 mg by mouth every 4 hours as needed for Pain. Active citalopram (CELEXA) 20 MG tabletIndications:Ramona gilmore ([facility]) TAKE 1 TABLET BY MOUTH DAILY 90 Tablet 2 06/05/2021 Active levothyroxine (SYNTHROID) 50 MCG tablet TAKE 1 TABLET BY MOUTH DAILY 90 Tablet 06/26/2021 Active Active Problems Problem Noted Date Diagnosed Date Lung nodules 03/13/2016 Overview (10/31/2016): Lung nodules up to 5 mm, CT due 03/28 Anxiety 06/16/2015 Overview (07/16/2015): Wellbutrin- anxiety Eustachian tube dysfunction 06/16/2015 Vertigo 05/17/2015 Obstructive sleep apnea 05/06/2014 Overview (12/09/2014): Epic Eczema 08/26/2006 Asthma, mild intermittent 08/26/2006 Resolved Problems Problem Noted Date Diagnosed Date Resolved Date Cervical cancer screening 04/02/2017 Overview (11/29/2020): 2006 NILM 2013 NILM 2017 ASCUS ,neg HPV 46 y.o. 2020 NILM, HPV negative 49 y.o. Plan: Co-test 11/2023 Immunizations Name Administration Dates Next Due Flu Vac (3+ yrs) 03/22/2005 Fluzone Qiv Multidose Vial 0 .25 (6-35 Mos) 03/30/2013 Influenza IIV4 (Quadrivalent ) 0.5mL (61459) 12/16/2019,03/02/2019,03/29/2017,2015,01/18/2015,04/09/2014,03/30/2013 Moderna Monovalent 12+ 09/29/2020,09/01/2020 Moderna Monovalent [...] Comments Blood Pressure 129/81 01/27/2021 12:00 PM TRIPOLER Pulse 58 01/27/2021 12:00 PM TRIPOLER Temperature 37.5 ??C (99.5 ??F) 01/19/2021 7:11 PM CS T Respiratory Rate 20 03/02/2019 2:24 PM TRIPOLER Oxygen Saturation 98% 01/19/2021 7:11 PM TRIPOLER Inhaled Oxygen Concentration - - Weight 104.3 kg (230 lb) 01/27/2021 12:00 PM TRIPOLER Height 153.7 cm (5' 0.5) 11/18/2020 2:06 [...] 03/29/2017, Additional history exists Mammogram 11/18/2021 11/18/2020, 03/0 09/2018, 02/07/2017, Additional history exists COVID-19 Vaccine ( season) 2023 07/04/2021, 09/29/2020, 09/01/2020 Influenza (#1) 2023 12/16/2019, 02/09, 03/29/2017, Additional history exists Cervical Cancer Screening [...] PM CDT) Case Report Pap ? Case: [id number] ? Authorizing Provider: ??Alyssia, Chidi Murillo N P, MD ? Collected: ? 11/18/2020 1540 ? Ordering Location: ? [facility] [place] ? Received: ?11/18/2020 1608 ? Obstetrics and Gynecology ? First Screen: ?Nathalia Santos, CT ? (ASCP) ? Specimen: ?Pap Test, Routine, Cervix/Endocervix ? 11/28/2020 11:12 [facility] Pap Specimen Adequacy Satisfactory for evaluation, endocervical/ni sformation zone component absent. 11/28/2020 11:12 AM [facility] Pap Interpretation Negative for intraepithelial lesion or malignancy (NILM). 11/28/2020 11:12 [facility] Pap Other Findings Atrophy. 11/28/2020 11:12 AM [facility] Pap Disclaimer The Pap test is a screening test designed to aid in the detection of cervical cancer and its precursor lesions. It is not a diagnostic procedure and should not be used as the sole means of detecting cervical cancer. Both false-positive and false-negative results may occur. 11/28/2020 11:12 AM [facility] Gross Description The specimen is received in SurePath fixative and properly labeled. 1 Pap-stained SurePath slide is prepared. 11/28/2020 11:12 AM [facility] Embedded Images 11:12 AM [facility] Other Specimen Type ENTIRE ENDOCERVIX / Unknown 11/18/2020 3:40 PM CDT 11/18/2020 4:08 PM CDT Comment:LMP: Patient's last menstrual period was 11/11/2020 (exact date). Chidi Cade [place] [address], [facility] [phone] * MM Mammogram Screening Bilat W 3D [...] evidence of malignancy. ?? Yanelis Millan MD RAD [facility] * (ABNORMAL) Lipid Panel and Direct LDL(If Needed) (12/16/2019 5:00 PM CDT) Cholesterol 216(H) 0 - 199 mg/dL 12/16/2019 10:01 PM CDT [facility] Triglyceride 118 <=149 mg/dL 12/16/2019 10:01 PM CDT [facility] HDL Cholesterol 59 >=40 mg/dL 12/16/2019 10:01 PM CDT [facility] LDL, Calculated 133(H) <130 mg/dL 12/16/2019 10:01 PM CDT [facility] Non HDL Chol, Calculated 157 mg/dL 12/16/2019 10:01 PM CDT [facility] Cholesterol/HDL Ratio 3.7 12/16/2019 10:01 PM CDT [facility] Hours Fasting 12 12/16/2019 10:[address] [facility] [facility] Blood Venipuncture / Unknown 12/16/2019 5:00 PM CDT 12/16/2019 5:00 PM CDT Yanelis Millan MD LAB_1 [facility] [address] [address] [phone] [facility] [address] [place] [id number], [facility] [phone] * HIV 1/2 Ag/Ab 4th Generation (01/06/2016 12:17 PM CDT) HIV 1/2 AG/AB 4thGEN Negative (Non Reactive) [facility] Comment:HIV-1 p24 Ag and HIV -1/HIV-2 Ab not detected. 01/06/2016 12:1 7 PM CDT 01/06/2016 12:19 PM CDT Narrative [facility] - 01/06/2016 3:21 PM CDT Performed at [facility], [address], [place], [place] ??[address] Chidi Cade MD LAB_1 [facility] [phone] from Last 3 Months or Most Recently Relevant to Health Maintenance Care Teams Fruit Picker Relationship Specialty [place] [address] [place] [address] PCP - General Family Practice 03/30/13
--- OUTSIDE RECORDS SUMMARY | 2023-12-06 02:40 | XMS_ITS | Encounter Summary ---
Author Organization [facility] Address [address] [place] [address] Care Team Providers Care Mails Supervisor Name Role Phone Yanelis Millan MD Primary Care Provider [phone] Encounter Details Date Type Department Care Team [...] on filedocumented in this encounter Care Teams Mails Supervisor Relationship Specialty [place] [address] [place] [address] PCP - General Family Practice 03/30/13 documented as of this encounter
--- OUTSIDE RECORDS SUMMARY | 2023-12-06 02:40 | XMS_ITS | Encounter Summary ---
Author Organization [employer] Address [address] [place] [address] Care Team Providers Care Household Refrigerator Mechanic Name Role Phone Yanelis Millan MD Primary [...] on filedocumented in this encounter Care Teams Household Refrigerator Mechanic Relationship Specialty Start [place] [address] [place] [address] PCP - General Family Practice 03/30/13 documented as of this encounter
== END 2023-12-02 09:31 | disposition home or self-care (01) ==
LOC: NFLDREF 12-06 02:37
PROVIDERS: PCP Family Medicine; Referring Provider Family Medicine; Visit Provider Family Medicine
DX: E78.5 Hyperlipidemia, unspecified (principal); E03.9 Hypothyroidism, unspecified; E53.8 Deficiency of other specified B group vitamins
CPT/HCPCS: 80053; 80061; 82607; 84439; 84443

== ENCOUNTER 2023-12-06 10:41 | Outpatient (CLI) | payer OTHER, SELFPAY ==
--- OUTSIDE RECORDS SUMMARY | 2023-12-06 10:44 | XMS_ITS | Encounter Summary ---
Author Organization [email or web address] Address [address] [place] [address] Care Team Providers Care Premium Service Representative Name Role Phone Yanelis Millan MD Primary Care Provider [phone] Encounter Details Date Type Department Care Team (Late st Contact Info) Description 11/29/2017 Correspondence [facility] [address] 118663 [place] [address] [place] [place] [address] CONTINUTIY OF CARE DOCUMENT Social History Tobacco [...] on filedocumented in this encounter Care Teams Premium Service Representative Relationship Specialty Start [place] [address] [place] [id number] PCP - General Family Practice 03/30/13 documented as of this encounter
--- OUTSIDE RECORDS SUMMARY | 2023-12-06 10:44 | XMS_ITS | Encounter Summary ---
Author Organization [employer] Address [address] [place] [address] Care Team Providers Care Employee Relation Manager Name Role Phone Yanelis Millan MD Primary Care Provider [phone] Encounter Details Date Type Department Care Team [...] on filedocumented in this encounter Care Teams Employee Relation Manager Relationship Specialty [place] [address] [place] [address] PCP - General Family Practice 03/30/13 documented as of this encounter
--- OUTSIDE RECORDS SUMMARY | 2023-12-06 10:44 | XMS_ITS | Clinical Summary ---
Author Organization [employer] Address [address] [place] [address] Care Team Providers Care Round Kiln Drawer Name Role Phone Yanelis Millan MD Primary Care Provider + [phone] Source Comments You are receiving this document as you are listed as the primary care provider,follow-up provider, or the patient has been referred to you for consultation.This is in compliance with the Medicare andTri[facility] Hospitalcaid EHR Incentive Program,which states Providers who transition their patient to another setting of careor provider of care or refers their patient to another provider of care shouldprovide summary care record for each transition of care or referral. [facility] Allergies Active Allergy Reactions Criticality Noted Date Comments Bee Venom Rash 03/30/2013 Doxycycline Nausea And Vomiting 02/01/2016 Patient reported. Latex Rash 02/15/2016 Other 03/23/2002 latex Penicillins Rash 03/22/2005 Medications Medication Sig Dispensed Refills Start Date End Date Status busPIRone (BUSPAR) 5 MG tabletIndications:Ramona gilmore ([facility]) Take 1 Tablet by mouth two times a day. 180 Tablet 3 09/01/2020 Active nystatin (MYCOSTATIN) 675367 UNIT/GM powderIndications:Cu taneous candidiasis Apply twice a day to affected area for 1-2 weeks 30 g 1 11/18/2020 Active ibuprofen (MOTRIN) 200 MG tablet Take 200-400 mg by mouth every 4 hours as needed for Pain. Active citalopram (CELEXA) 20 MG tabletIndications:Ramona gilmore ([facility]) TAKE 1 TABLET BY MOUTH DAILY [...] Mos) 03/30/2013 Influenza IIV4 (Quadrivalent ) 0.5mL (20897) 12/16/2019,03/02/2019,03/29/2017,2015,01/18/2015,04/09/2014,03/30/2013 Moderna Monovalent 12+ 09/29/2020,09/01/2020 Moderna Monovalent [...] Comments Blood Pressure 129/81 01/27/2021 12:00 PM PANTOGRAPH I ENGRAVER Pulse 58 01/27/2021 12:00 PM PANTOGRAPH I ENGRAVER Temperature 37.5 ??C (99.5 ??F) 01/19/2021 7:11 PM CS T Respiratory Rate 20 03/02/2019 2:24 PM PANTOGRAPH I ENGRAVER Oxygen Saturation 98% 01/19/2021 7:11 PM PANTOGRAPH I ENGRAVER Inhaled Oxygen Concentration - - Weight 104.3 kg (230 lb) 01/27/2021 12:00 PM PANTOGRAPH I ENGRAVER Height 153.7 cm (5' 0.5) 11/18/2020 2:06 [...] PM CDT) Case Report Pap ? Case: [id number] ? Authorizing Provider: ??Alyssia, Chidi Murillo N P, MD ? Collected: ? 11/18/2020 1540 ? Ordering Location: ? [facility] [place] ? Received: ?11/18/2020 1608 ? Obstetrics and Gynecology ? First Screen: ?Nathalia Santos, CT ? (ASCP) ? Specimen: ?Pap Test, Routine, Cervix/Endocervix ? 11/28/2020 11:12 [facility] Pap Specimen Adequacy Satisfactory for evaluation, endocervical/ni sformation zone component absent. 11/28/2020 11:12 AM [facility] Pap Interpretation Negative for intraepithelial lesion or malignancy (NILM). 11/28/2020 11:12 [facility] Pap Other Findings Atrophy. 11/28/2020 11:12 AM [facility] Pap Disclaimer The Pap test is a screening test designed to aid in the detection of cervical cancer and its precursor lesions. It is not a diagnostic procedure and should not be used as the sole means of detecting cervical cancer. Both false-positive and false-negative results may occur. 11/28/2020 11:12 AM [facility] Gross Description The specimen is received in SurePath fixative and properly labeled. 1 Pap-stained SurePath slide is prepared. 11/28/2020 11:12 AM [facility] Embedded Images 11:12 AM [facility] Other Specimen Type ENTIRE ENDOCERVIX / Unknown 11/18/2020 3:40 PM CDT 11/18/2020 4:08 PM CDT Comment:LMP: Patient's last menstrual period was 11/11/2020 (exact date). [place]idi [place] [address], [facility] [phone] * MM Mammogram Screening Bilat W 3D [...] - 199 mg/dL 12/16/2019 10:01 PM CDT [facility] Triglyceride 118 <=149 mg/dL 12/16/2019 10:01 PM CDT [facility] HDL Cholesterol 59 >=40 mg/dL 12/16/2019 10:01 PM CDT [facility] LDL, Calculated 133(H) <130 mg/dL 12/16/2019 10:01 PM CDT [facility] Non HDL Chol, Calculated 157 mg/dL 12/16/2019 10:01 PM CDT [facility] Cholesterol/HDL Ratio 3.7 12/16/2019 10:01 PM CDT [facility] Hours Fasting 12 12/16/2019 10:01 PM CDT [facility] Blood Venipuncture / Unknown 12/16/2019 5:00 PM CDT 12/16/2019 5:00 PM CDT Yanelis Millan MD LAB_1 [facility] [address] [address] [phone] [facility] [address] [place] [phone], [facility] [phone] * HIV 1/2 Ag/Ab 4th Generation (01/06/2016 12:17 PM CDT) HIV 1/2 AG/AB 4thGEN Negative (Non Reactive) NEGNR [facility] Comment:HIV-1 p24 Ag and HIV -1/HIV-2 Ab not detected. 01/06/2016 12:1 7 PM CDT 01/06/2016 12:19 PM CDT Narrative [facility] - 01/06/2016 3:21 PM CDT Performed at [facility], [address], [place], [place] ??[address] Chidi Cade MD LAB_1 [facility] [phone] from Last 3 Months or Most Recently Relevant to Health Maintenance Care Teams Round Kiln Drawer Relationship Specialty [place] [address] [place] [address] PCP - General Family Practice 03/30/13
--- OUTSIDE RECORDS SUMMARY | 2023-12-06 10:44 | XMS_ITS | Encounter Summary ---
Author Organization [employer] Address [address] [place] [address] Care Team Providers Care Rooming House Keeper Name Role Phone Yanelis Millan MD Primary [...] on filedocumented in this encounter Care Teams Rooming House Keeper Relationship Specialty [place] [address] [place] [address] PCP - General Family Practice 03/30/13 documented as of this encounter
--- OUTSIDE RECORDS SUMMARY | 2023-12-06 10:44 | XMS_ITS | Encounter Summary ---
Author Organization [facility] Address [address] [place] [address] Care Team Providers Care Mica Machine Operator Name Role Phone Yanelis Millan MD Primary Care Provider [phone] Encounter Details Date Type Department Care Team [...] on filedocumented in this encounter Care Teams Mica Machine Operator Relationship Specialty [place] [address] [place] [address] PCP - General Family Practice 03/30/13 documented as of this encounter
--- OUTSIDE RECORDS SUMMARY | 2023-12-06 10:44 | XMS_ITS | Encounter Summary ---
Author Organization [employer] Address [address] [place] [address] Care Team Providers Care Mac Artist Name Role Phone Yanelis Millan MD Primary [...] on filedocumented in this encounter Care Teams Mac Artist Relationship Specialty [place] [address] [place] [address] PCP - General Family Practice 03/30/13 documented as of this encounter
--- OUTSIDE RECORDS SUMMARY | 2023-12-06 10:44 | XMS_ITS | Encounter Summary ---
Author Organization [employer] Address [address] [place] [address] Care Team Providers Care Gas Worker Name Role Phone Yanelis Millan MD Primary Care Provider [phone] Encounter Details Date Type Department Care Team (Latest Contact Info) Description 03/08/2016 Consent for Procedure/Treatme nt [facility] [address] [facility] [address] [place] [address] METHACHOLINE CHALLENGE TEST Social History Tobacco Use [...] on filedocumented in this encounter Care Teams Gas Worker Relationship Specialty [place] [address] [place] [address] PCP - General Family Practice 03/30/13 documented as of this encounter
--- OUTSIDE RECORDS SUMMARY | 2023-12-06 10:44 | XMS_ITS | Encounter Summary ---
Author Organization [employer] Address [address] [place] [address] Care Team Providers Care Manager Economic Name Role Phone Yanelis Millan MD Primary [...] on filedocumented in this encounter Care Teams Manager Economic Relationship Specialty [place] [address] [place] [address] PCP - General Family Practice 03/30/13 documented as of this encounter
[2023-12-08 05:33] LABS: HPV Source Cervix; HPV, High Risk by TMA Not Detected
[2023-12-18 15:04] LABS: PAP Reflex Billing Y; Pap Test Reviewed by Path Done
== END 2023-12-06 10:42 | disposition home or self-care (01) ==
PROVIDERS: PCP Family Medicine; Visit Provider Family Medicine
DX: Z12.4 Encounter for screening for malignant neoplasm of cervix (principal)
CPT/HCPCS: 87624; 87625; 88141; 88142

== ENCOUNTER 2024-03-09 09:40 | Outpatient (CLI) | payer OTHER, SELFPAY | END 2024-03-09 09:41 | disposition home or self-care (01) | LOC: NFLDREF 03-10 11:48 | PROVIDERS: PCP Family Medicine; Referring Provider Family Medicine; Visit Provider Family Medicine | DX: E03.9 Hypothyroidism, unspecified (principal) | CPT/HCPCS: 84439; 84443 ==

== ENCOUNTER 2024-03-25 13:19 | Outpatient (CLI) | payer MEDICAID, SELFPAY ==
--- NOTE | 2024-03-25 13:20 | CRLHL7_ITS ---
For Patients: As a result of the Century Cures Act, medical imaging exams and procedure reports are released immediately into your electronic medical record. You may view this report before your referring provider. If you have questions, please contact your health care provider. BILATERAL SCREENING MAMMOGRAM WITH COMPUTER-AIDED DETECTION AND TOMOSYNTHESIS TECHNIQUE: CC and MLO views were obtained. These mammographic images have been obtained using full-field digital technique. These mammographic images were interpreted with the benefit of computer-aided detection. Breast Tomosynthesis was used in this interpretation. COMPARISON FILM: 04/05/22. FINDINGS: The breasts are heterogeneously dense, which may obscure small masses IMPRESSION: There is no radiographic evidence for malignancy. ASSESSMENT: BI-RADS Category 2: Benign RECOMMENDATION: Routine screening mammogram in 1 year. A lay language report of this examination will be provided to the patient. Jean Paul Castillo M.D. Diagnostic Radiologist [email or web address] Transcribed: 3:51 p.eric quintero/Dictated by: Jean Paul Castillo MD @ 03/26/2024 10:29:00 AM (Electronically Signed)
== END 2024-03-25 13:20 | disposition home or self-care (01) ==
PROVIDERS: PCP Family Medicine; Visit Provider Family Medicine
DX: Z12.31 Encounter for screening mammogram for malignant neoplasm of breast (principal); R92.333 Mammographic heterogeneous density, bilateral breasts
CPT/HCPCS: 77063; 77067

== ENCOUNTER 2024-04-01 10:45 | Outpatient (RCR) | payer OTHER, SELFPAY | END 2024-05-12 10:17 | disposition home or self-care (01) | PROVIDERS: PCP Family Medicine; Visit Provider Physician Assistant | DX: M79.672 Pain in left foot (principal); G57.62 Lesion of plantar nerve, left lower limb; M76.829 Posterior tibial tendinitis, unspecified leg; Z74.09 Other reduced mobility; M25.571 Pain in right ankle and joints of right foot; R26.9 Unspecified abnormalities of gait and mobility; Z51.89 Encounter for other specified aftercare | CPT/HCPCS: 97110; 97140; 97161 ==

== ENCOUNTER 2024-06-03 09:35 | Outpatient (CLI) | payer OTHER, SELFPAY | END 2024-06-03 09:36 | disposition home or self-care (01) | LOC: NFLDREF 18:40 | PROVIDERS: PCP Family Medicine; Referring Provider Family Medicine; Visit Provider Family Medicine | DX: E03.9 Hypothyroidism, unspecified (principal) | CPT/HCPCS: 84443 ==

== ENCOUNTER 2025-01-04 09:39 | Outpatient (CLI) | payer OTHER, SELFPAY | END 2025-01-04 09:40 | disposition home or self-care (01) | LOC: NFLDREF 01-05 18:37 | PROVIDERS: PCP Family Medicine; Referring Provider Family Medicine; Visit Provider Family Medicine | DX: E78.5 Hyperlipidemia, unspecified (principal); E03.9 Hypothyroidism, unspecified; E53.8 Deficiency of other specified B group vitamins; R53.83 Other fatigue; R73.01 Impaired fasting glucose | CPT/HCPCS: 80053; 80061; 82607; 84443 ==